=== PATIENT | female | born 1985 | race Caucasian/White ===

== ENCOUNTER → 2023-03-14 16:40 | Outpatient (CLI) | payer BC, SELFPAY ==
--- NOTE | 2023-03-14 16:47 | XR_ITS ---
PROCEDURE INFORMATION: Exam: XR Right Femur Exam date and time: 03/14/2023 4:52 PM Age: 38 years old Clinical indication: Patient HX: Pain in right thigh for 2 years that comes and goes. Not constant. TECHNIQUE: Imaging protocol: Radiologic exam of the right femur. Views: 2 views. COMPARISON: No relevant prior studies available. FINDINGS: Bones/joints: No evidence of acute fracture or malalignment. No destructive or suspicious bone lesions. Soft tissues: Unremarkable. IMPRESSION: Normal right femur radiograph.
== END ==
LOC: RAD 16:43
PROVIDERS: PCP Family Medicine; Visit Provider Family Medicine
DX: M79.651 Pain in right thigh (principal)
CPT/HCPCS: 73552

== ENCOUNTER → 2023-03-23 15:35 | Outpatient (CLI) | payer BC, SELFPAY ==
--- NOTE | 2023-03-23 15:40 | US_ITS ---
FINAL REPORT CLINICAL HISTORY: NEOPLASM COMPARISON: None FINDINGS: ULTRASOUND SOFT TISSUE Sonographic images of the superficial soft tissues were obtained with attention to the right thigh. There is an hyperechoic nodule in the subcutaneous tissues measuring 14 x 6 x 15 mm. The appearance is most compatible with a lipoma. No other lesion or fluid collection identified. IMPRESSION: Small lipoma likely accounting for palpable abnormality. Reviewed, Interpreted and Dictated by Aime Olivo MD Transcribed by Araceli Deshpande Authenticated and [facility]
== END ==
PROVIDERS: PCP Family Medicine; Visit Provider Family Medicine
DX: D48.1 Neoplasm of uncertain behavior of connective and other soft tissue (principal)
CPT/HCPCS: 76882

== ENCOUNTER 2024-09-07 15:46 | Outpatient (CLI) | payer OTHER, SELFPAY ==
--- NOTE | 2024-09-07 15:50 | US_ITS ---
FINAL REPORT CLINICAL HISTORY: MASS OF LEFT AXILLA FINDINGS: ULTRASOUND LEFT AXILLA HISTORY: Left axillary nodule. Ultrasound imaging was obtained with attention to the left axilla. There are normal-sized left axillary lymph nodes measuring up to 11 mm. IMPRESSION: No mass or enlarged lymph node. Should symptoms persist, consider CT or MRI for further evaluation. Reviewed, Interpreted and Dictated by Aime Olivo MD Transcribed by Tiffanie Stein Authenticated and [facility]
--- NOTE | 2024-09-07 15:52 | MM_ITS ---
PROCEDURE INFORMATION: Exam: Bilateral Screening 3D Mammography Exam date and time: 09/07/2024 3:58 PM Age: 39 years old Clinical indication: Baseline. Technologist notes indicate left axilla palpable concern, for 4 months, which was marked, but not included in the mammogram due to location. No family history of breast cancer. TECHNIQUE: Imaging protocol: Bilateral Screening tomosynthesis and 2D mammography including computer-aided detection (CAD) when performed. COMPARISON: No relevant prior studies available. FINDINGS: MAMMOGRAPHY: Breast composition: There are scattered areas of fibroglandular density. Mass: None. Architectural distortion: None. Calcifications: No suspicious calcifications. Asymmetric density: None. Skin thickening: None. Axillary adenopathy: None. IMPRESSION: See comments Note history of left axillary palpable concern, which cannot be included on the mammogram due to location as per technologist notes. If of concern, diagnostic mammography and sonography can be added.Further evaluation of a palpable abnormality should be based on clinical grounds regardless of radiographic findings or lack thereof. No mammographic evidence of malignancy. Annual screening is recommended unless otherwise clinically indicated. ASSESSMENT: BI-RADS Category 1: Negative.
== END 2024-09-07 23:59 | disposition home or self-care (01) ==
LOC: RAD 15:46
PROVIDERS: PCP Family Medicine; Visit Provider Physician Assistant
DX: R22.32 Localized swelling, mass and lump, left upper limb (principal); Z12.31 Encounter for screening mammogram for malignant neoplasm of breast
CPT/HCPCS: 76642; 77063; 77067

== ENCOUNTER 2024-09-12 16:23 | Outpatient (CLI) | payer OTHER, SELFPAY ==
[2024-09-12 17:12] LABS: Basophils # 0.1 K/mm3 (0-0.2); Eosinophils % 0.2 % (0.1-12.0); Hematocrit 41.4 % (37.0-47.0); Lymphocytes # 1.1 K/mm3 (0.7-4.5); Lymphocytes % 18.3 % (10-50); Mean Corpuscular HGB Conc 33.8 g/dL (31.8-35.4); Mean Corpuscular Volume 94.7 fl (81-99); Mean Platelet Volume 11.1 fl (7.4-10.4); Monocytes # 0.8 K/mm3 (0.1-1.0); Monocytes % 13.4 % (1.7-9.3); Neutrophils # 4.1 K/mm3 (1.8-7.8); Neutrophils % 66.9 % (37.0-80.0); Platelet Count 214 K/mm3 (142-424); Red Blood Count 4.37 M/mm3 (4.20-5.40); Red Cell Distribution Width 12.3 % (11.5-17.5); White Blood Count 6.1 K/mm3 (4.8-10.8)
[2024-09-12 17:24] LABS: Alanine Aminotransferase 16 U/L (12-78); Albumin Level 4.4 g/dl (3.5-5.0); Alkaline Phosphatase 46 U/L (38-126); Anion Gap 14.8 mEq/L (5-15); Aspartate Amino Transferase 22 U/L (14-36); Bilirubin,Total 0.2 mg/dl (0.2-1.3); Blood Urea Nitrogen 15 mg/dl (7-17); Calcium 9.5 mg/dl (8.4-10.2); Carbon Dioxide 25 mmol/L (22.0-30.0); Chloride 103 mmol/L (98-107); Estimated Glomerular Filt Rate 69 ml/min (>60); GFR (African American) 83 ML/MIN (>60); Globulin 2.2 g/dL (1.3-3.2); Glucose 86 mg/dl (74-100); Potassium 3.8 mmoL/L (3.5-5.1); Sodium 139 mmol/L (136-145); Total Protein,Serum 6.6 g/dl (6.3-8.2)
[2024-09-12 17:39] LABS: 25-OH Vitamin D, Total 80.9 ng/mL (30-100)
[2024-09-12 17:41] LABS: Free T4 (Free Thyroxine) 1.07 ng/dl (0.78-2.19)
[2024-09-12 17:55] LABS: Thyroid Stimulating Hormone 1.71 uIU/mL (0.465-4.68)
[2024-09-13 08:17] LABS: Thyroid Peroxidase Antibodies 10 IU/mL (0-34)
[2024-09-13 15:19] LABS: Antinuclear Antibodies, IFA Negative (.); Thyroglobulin Level <1.0 IU/mL (0.0-0.9)
[2024-09-15 07:20] LABS: F002-IgE Milk 0.13 kU/L (Class 0/I); F026-IgE Pork < 0.10 kU/L (Class 0); F027-IgE Beef < 0.10 kU/L (Class 0); F088-IgE Lamb < 0.10 kU/L (Class 0); Immunoglobulin E, Total 134 IU/mL (6-495); O215-IgE Alpha-Gal < 0.10 kU/L (Class 0)
== END 2024-09-12 23:59 | disposition home or self-care (01) ==
LOC: LAB 16:24
PROVIDERS: PCP Physician Assistant; Visit Provider Allergy & Immunology
DX: L50.1 Idiopathic urticaria (principal); R10.84 Generalized abdominal pain
CPT/HCPCS: 36415; 80053; 82306; 83520; 84439; 84443; 85025; 86003; 86008; 86038; 86352; 86376; 86800

== ENCOUNTER 2024-10-15 14:40 | Outpatient (CLI) | payer OTHER, SELFPAY ==
[2024-10-15 14:56] LABS: Microscopic, Urine URINE MICROSCOPIC (MICROSCOPIC)
[2024-10-15 15:26] LABS: Blood Urea Nitrogen 20 mg/dl (7-17); Estimated Glomerular Filt Rate 69 ml/min (>60); GFR (African American) 83 ML/MIN (>60)
[2024-10-15 15:47] LABS: Bilirubin,Urine Negative (Negative); Blood, Urine 1+ (Negative); Color,Urine YELLOW (Yellow); Glucose,Urine (UA) Negative (Negative); Ketones,Urine Negative (Negative); Leukocyte Esterase,Urine 1+ (Negative); Nitrate,Urine Negative (Negative); Protein,Urine Negative (Negative); Specific Gravity, Urine >= 1.030 (1.005-1.030); Urobilinogen,Urine 0.2 EU/dl (0.2)
[2024-10-15 15:55] LABS: Appearance,Urine Cloudy (Clear)
[2024-10-15 16:02] LABS: Bacteria,Urine 4+ /lpf; Squamous Epithelial Cell,Urine 50-100 #/hpf (0-5); WBC,Urine 20-50 #/hpf (0-3)
== END 2024-10-15 23:59 | disposition home or self-care (01) ==
PROVIDERS: PCP Physician Assistant; Visit Provider Urology
DX: R31.9 Hematuria, unspecified (principal); N20.0 Calculus of kidney
CPT/HCPCS: 36415; 81001; 82565; 84520; 87086; 87088; 87186

== ENCOUNTER 2024-10-31 08:43 | Outpatient (CLI) | payer OTHER, SELFPAY ==
--- NOTE | 2024-10-31 08:44 | CT_ITS ---
FINAL REPORT TECHNIQUE: Axial CT of the abdomen and pelvis, without and with IV contrast. Coronal and sagittal reconstructions obtained and reviewed. This study was performed with techniques to keep radiation doses as low as reasonably achievable, (ALARA). Individualized dose reduction techniques using automated exposure control or adjustment of mA and/or kV according to the patient''s size were employed. CLINICAL HISTORY: Renal stones COMPARISON: None FINDINGS: Abdomen: Lung bases are clear. Liver has an unremarkable CT appearance. The spleen, pancreas and adrenal glands are unremarkable. The gallbladder is negative. Precontrast imaging shows no renal stone disease. Postcontrast imaging of the kidneys shows no evidence of obstruction, renal mass, or pyelonephritis. No bowel obstruction or fluid collection is seen. Pelvis: The appendix is normal. Pelvic bowel loops are unremarkable. The uterus is retroverted. The cervix is enlarged, mass not excluded. The ovaries are unremarkable. There is a benign cyst in the right ovary measuring 14 mm. There is no free fluid. The urinary bladder is unremarkable. IMPRESSION: No evidence of renal stone disease or obstruction. Cervical enlargement. Recommend correlation with physical exam and/or Pap smear. Reviewed, Interpreted and Dictated by Aime Olivo MD Transcribed by Araceli Deshpande Authenticated and [facility]
[2024-10-31] MEDS: SODIUM CHLORIDE 0.9% 10ML SYR (RAD ONLY) 10 ML IV (09:09)
[2024-10-31] MEDS: IOPAMIDOL-370 (76%);100ML BOTTLE 75 ML IV (09:09)
== END 2024-10-31 23:59 | disposition home or self-care (01) ==
LOC: RAD 08:44
PROVIDERS: PCP Physician Assistant; Visit Provider Urology
DX: N20.0 Calculus of kidney (principal); R31.9 Hematuria, unspecified
CPT/HCPCS: 74178; Q9967

== ENCOUNTER 2024-11-12 16:26 | Outpatient (CLI) | payer OTHER, SELFPAY ==
[2024-11-12 15:17] LABS: Microscopic, Urine URINE MICROSCOPIC (MICROSCOPIC)
[2024-11-12 16:17] LABS: Appearance,Urine Clear (Clear); Color,Urine Yellow (Yellow); PH,Urine 6.5 (5.0-8.5); Specific Gravity, Urine 1.025 (1.005-1.030)
[2024-11-12 16:18] LABS: Bacteria,Urine Trace /lpf; Bilirubin,Urine Negative (Negative); Blood, Urine Trace (Negative); Glucose,Urine (UA) Negative (Negative); Ketones,Urine Negative (Negative); Leukocyte Esterase,Urine Negative (Negative); Nitrate,Urine Negative (Negative); Protein,Urine Negative (Negative); RBC,Urine Occasional #/hpf (0-3); Urobilinogen,Urine 0.2 EU/dl (0.2)
== END 2024-11-12 23:59 | disposition home or self-care (01) ==
LOC: LAB.DROPOF 16:26
PROVIDERS: PCP Urology; Visit Provider Urology
DX: R31.9 Hematuria, unspecified (principal)
CPT/HCPCS: 81001